=== PATIENT | male | born 1995 | race Caucasian/White ===

== ENCOUNTER 2016-08-15 04:23 | Emergency (ER) | payer OTHER ==
--- NOTE | ~2016-08-15 | ER ---
PATIENT'S NAME: SOBEIDA FUNG [facility] AGE: 21 Y [address] ROOM: [place] [address] LOCATION: [facility] ADMIT DATE: 08/15/2016 ER/Outpatient Report DISCHARGE DATE: 08/15/2016 FAMILY PHYSICIAN: Moe Lara MD ATTENDING PHYSICIAN: Hung Orellana Admission date and time documented on the medical record. I saw the patient at 0440 hours. CHIEF COMPLAINT: Sore throat. HISTORY OF PRESENT ILLNESS: The patient is a 21-year-old male who comes in with 24-hour history of sore throat. Also, has some left ear discomfort. No cough, no shortness of breath, no abdominal pain, nausea, vomiting, or diarrhea. HOME MEDICATIONS: Advil as needed. ALLERGIES: CATS. SOCIAL HISTORY: Nonsmoker, nondrinker. SIGNIFICANT PAST MEDICAL HISTORY: Asthma and depression. OPERATIONS: Appendectomy, wisdom teeth extraction, and tympanostomy tubes. REVIEW OF SYSTEMS: All systems reviewed by me are negative with the exception of those discussed in the history of present illness. PHYSICAL EXAMINATION: VITAL SIGNS: Temperature 100.3, tympanic; pulse 98; respirations 16; blood pressure 127/62; O2 saturation on room air is 96%. HEENT: Head: Normocephalic. Eyes: Clear. Ears: He has debris in the left canal. TMs were clear bilaterally. Nose: Clear. Throat: Inflamed, swollen. No exudate. NECK: Tender anterior adenopathy. No nuchal rigidity. LUNGS: Clear. HEART: Regular. PATIENT'S NAME: SOBEIDA FUNG [facility] AGE: 21 Y [address] ROOM: [place] [address] LOCATION: [facility] ADMIT DATE: 08/15/2016 ER/Outpatient Report DISCHARGE DATE: 08/15/2016 FAMILY PHYSICIAN: Moe Lara MD ATTENDING PHYSICIAN: Hung Orellana ABDOMEN: Soft, nontender. Good bowel tones. NEUROVASCULAR: Intact. LABORATORY DATA: Rapid strep screen was positive. IMPRESSION: Strep pharyngitis. PLAN: The patient was given Bicillin L-A 1.2 million units IM in the emergency room, Decadron 10 mg IM in the emergency room. Discharged home. Observation. Activity as tolerated. Fluids and diet as tolerated. Tylenol or ibuprofen 2 orally every 4-6 hours for fever. Lcuv-ffy-zquyact gargles, lozenge, or sprays, to soothe the throat. Examples, Sudafed, Sucrets Sore, Cepastat or even warm saltwater gargles. Dumas 7.5/325 as need for pain, #10. Follow up with personal physician in 10 days for recheck of throat culture and followup exam. Discussion ensued with the patient and his mother in regard to my findings and recommendations, they understand. MD DARYA ACOSTA/kiritl /[id number] d: 08/15/16 0729 t: 08/17/16 1814, OUTPATIENT REPORT
== END 2016-08-15 05:40 | disposition disaster alternative care site (69) ==
LOC: GMED 04:23
DX: J02.0 Streptococcal pharyngitis (principal); J45.909 Unspecified asthma, uncomplicated; F32.9 Major depressive disorder, single episode, unspecified
CPT/HCPCS: J0561; J1100

== ENCOUNTER 2016-12-29 03:49 | Emergency (ER) | payer OTHER ==
--- NOTE | ~2016-12-29 | ER ---
PATIENT'S NAME: SOBEIDA FUNG [facility] AGE: 21 Y [address] ROOM: [place] [address] LOCATION: [facility] ADMIT DATE: 12/29/2016 ER/Outpatient Report DISCHARGE DATE: FAMILY PHYSICIAN: Moe Lara MD ATTENDING PHYSICIAN: Charlie Martinez Time of Arrival: 0353 hours. Time of Evaluation: 0400 hours. CHIEF COMPLAINT: Alcohol intoxication. HISTORY OF PRESENT ILLNESS: The patient is a 21-year-old male who presents to the emergency department today with chief complaint of alcohol intoxication. He reports that he was having shakes, chills. He was drinking vodka last night. He called his grandmother to bring him into the ER for further evaluation. The patient is rather emotional. He reports he has had a long, rough childhood with bullying. When questioned about suicidal ideation, he denies any suicidal ideation. No homicidal ideation. No auditory or visual hallucinations. PAST MEDICAL HISTORY: Asthma and depression. PAST SURGICAL HISTORY: Appendectomy, wisdom teeth extraction, tympanostomy tubes. SOCIAL HISTORY: The patient denies any tobacco use. Reports occasional alcohol use. Denies any illicit drug use. ALLERGIES: NO KNOWN DRUG ALLERGIES. MEDICATIONS: Advil. PRIMARY CARE DOCTOR: Moe Lara MD. REVIEW OF SYSTEMS: All systems are reviewed by myself and are negative with the exception of those discussed in HPI and past medical history. PHYSICAL EXAMINATION: PATIENT'S NAME: SOBEIDA FUNG [facility] AGE: 21 Y [address] ROOM: [place] [address] LOCATION: [facility] ADMIT DATE: 12/29/2016 ER/Outpatient Report DISCHARGE DATE: FAMILY PHYSICIAN: Moe Lara MD ATTENDING PHYSICIAN: Charlie Martinez VITAL SIGNS: Weight 88.1 kg. Blood pressure 113/73, pulse 79, respiratory rate 20, temperature 96.1, oxygen saturation 100% on room air. GENERAL: The patient is a 21-year-old male, who appears stated age. Well developed, well nourished. He is crying. Does appear to be intoxicated. HEENT: Normocephalic, atraumatic. Pupils are equal, round, and reactive to light. Mucous membranes are moist. NECK: Supple. There is no nuchal rigidity. CARDIOVASCULAR: Regular rate and rhythm. No murmurs, rubs, or gallops. LUNGS: Clear to auscultation bilaterally. No wheezes, rales, or rhonchi. ABDOMEN: Soft, nontender, and nondistended. No rebound, rigidity, or guarding. MUSCULOSKELETAL: The patient moves all 4 extremities. NEUROLOGICAL: GCS 15. SKIN: Warm and dry. No rashes or lesions noted. LABORATORY DATA AND X-RAYS: Labs and x-rays are obtained. CBC is normal. CMP is unremarkable. LFTs are normal. Alcohol is 0.125. Acetaminophen is less than 2. Salicylate less than 2.8. IMPRESSION: 1. Alcohol intoxication. 2. Initial visit. EMERGENCY DEPARTMENT COURSE: The patient brought back to the examination room. Seen and evaluated by myself. An IV was established. Laboratory analysis and imaging are obtained as described above. The patient was given multiple normal saline boluses. He was given 4 mg Zofran IV. I have discussed results with the patient and his grandmother who is at the bedside. Once again, he strongly states that he is not suicidal at this time. I have discussed with him to abstain from alcohol. I have asked to follow up with his primary care doctor in 2 to 3 days for re- evaluation. I have discussed return to care instructions including worsening symptoms or any other concerns to return to the emergency department as soon as possible. The patient is agreeable without further questions at this time. DISPOSITION: The patient was discharged home in good condition. DO JULY PYLE/arias PATIENT'S NAME: SOBEIDA FUNG [facility] AGE: 21 Y [address] ROOM: [place] [address] LOCATION: [facility] ADMIT DATE: 12/29/2016 ER/Outpatient Report DISCHARGE DATE: FAMILY PHYSICIAN: Moe Lara MD ATTENDING PHYSICIAN: Charlie Martinez /[id number] d: 12/29/16626 t: 01/05/17 1110, OUTPATIENT REPORT
[2016-12-29 04:15] LABS: BASOPHIL # 0.1 K/uL (0.0-0.2); EOSINOPHIL # 0.3 K/uL (0.0-0.5); EOSINOPHIL % 2.4 %; HEMATOCRIT 41.4 % (37.0-53.0); HEMOGLOBIN 14.8 g/dL (12.0-17.0); IMMATURE GRANULOCYTE % 0.4 %; LYMPHOCYTE # 3.3 K/uL (0.8-4.0); LYMPHOCYTE % 30.4 %; MCH 30.6 pg (27.0-34.0); MCHC 35.7 gm/dL (32.0-36.5); MCV 85.5 fl (83.0-98.0); MONOCYTE # 0.6 K/uL (0.0-1.0); MONOCYTE % 5.2 %; MPV 11.7 fl (9.4-12.4); NEUTROPHIL # (ANC) 6.6 K/uL (1.4-9.0); NEUTROPHIL % 60.6 %; NRBC % 0 /100WBC (0-0.00); PLATELET COUNT 200 K/uL (150-450); RBC 4.84 M/uL (4.00-6.00); RDW-CV 12.3 % (11.9-14.6); WBC 10.9 K/uL (4.0-11.0)
[2016-12-29 04:39] LABS: ALBUMIN 4.6 gm/dL (3.5-5.0); ALK PHOS 107 IU/L (33-138); ALT 29 IU/L (12-78); ANION GAP 12.5 (10.0-19.0); AST 19 IU/L (10-40); BLOOD UREA NITROGEN 10 mg/dL (6-24); CALCIUM 8.7 mg/dL (8.5-10.5); CHLORIDE 109 mMol/L (96-110); CO2 25 mMol/L (22-32); CREATININE 1.1 mg/dL (0.6-1.3); POTASSIUM 3.5 mMol/L (3.7-5.1); SODIUM 143 mMol/L (135-145); TOTAL BILIRUBIN 0.6 mg/dL (0.0-1.5); TOTAL PROTEIN 7.8 g/dL (6.0-8.4)
[2016-12-29 06:47] LABS: BARBITURATE NEGATIVE (NEGATIVE); COCAINE NEGATIVE (NEGATIVE); OPIATES NEGATIVE (NEGATIVE)
[2016-12-29 06:52] LABS: AMPHETAMINE NEGATIVE (NEGATIVE)
== END 2016-12-29 06:40 | disposition disaster alternative care site (69) ==
LOC: GMED 03:49
PROVIDERS: Emergency Medicine
DX: F10.129 Alcohol abuse with intoxication, unspecified (principal); J45.909 Unspecified asthma, uncomplicated; F32.9 Major depressive disorder, single episode, unspecified; Z90.49 Acquired absence of other specified parts of digestive tract; Z98.818 Other dental procedure status; Z96.22 Myringotomy tube(s) status; Z79.899 Other long term (current) drug therapy
CPT/HCPCS: G0480; J2405; J7030